=== PATIENT | male | born 1950 | race Caucasian/White ===

== ENCOUNTER 2022-11-12 18:44 | Emergency (ER) | payer BC, MEDICARE ==
[~2022-11-12] VITALS: Ht 175.3 cm; Wt 77.3 kg
[~2022-11-12 18:44] MED LIST: RISP1TAB48 PO; TRAZ-257 PO
[2022-11-12] MEDS ORDERED: ATOR-2 PO (18:52)
[2022-11-12] MEDS ORDERED: OLAN5TAB94 PO (18:52)
[2022-11-12] MEDS ORDERED: TICA90TA PO (18:52)
[2022-11-12] MEDS ORDERED: ASPI-1198 PO (18:52)
[2022-11-12 22:23] LABS: BASOPHILS % (AUTO) 0.4 % (0.0-2.0); EOSINOPHILS % (AUTO) 0 % (1.0-6.0); HEMATOCRIT 38.1 % (41-53); HEMOGLOBIN 12.5 g/dL (13.5-17.5); LYMPHOCYTES # (AUTO) 1.2 K/uL (1.0-4.8); LYMPHOCYTES % (AUTO) 13.8 % (22.0-44.0); MEAN CORPUSCULAR HEMOGLOBIN 31.5 pg (26.0-34.0); MEAN CORPUSCULAR HGB CONC 32.9 G/dL (31.0-37.0); MEAN CORPUSCULAR VOLUME 96 fL (80-100); MONOCYTES # (AUTO) 0.6 K/uL (0.1-1.0); NEUTROPHILS % (AUTO) 78.8 % (40.0-70.0); PLATELET COUNT (AUTO) 315 K/uL (150-450); RED BLOOD CELL COUNT(AUTO) 3.98 MIL/uL (4.50-5.90); RED CELL DISTRIBUTION WIDTH 15.8 % (11.5-14.5)
[2022-11-12 22:32] LABS: ANION GAP 16 mmol/L (8-16); CALCIUM, TOTAL 9.4 mg/dL (8.8-10.5); CARBON DIOXIDE 24 mmol/L (22-29); CHLORIDE 97 mmol/L (98-107); CREATININE 2.02 mg/dL (0.60-1.30); GLOMERULAR FILTR. RATE CALC 33 mL/min (>60); GLUCOSE,RANDOM 121 mg/dL (70-110); POTASSIUM 3.2 mmol/L (3.5-5.1); SODIUM SERUM 137 mmol/L (136-145)
[2022-11-12 22:39] LABS: ALANINE AMINOTRANSFERASE 20 U/L (12-78); ALBUMIN 4.2 g/dL (3.4-5.0); ALKALINE PHOSPHATASE 79 U/L (46-116); ASPARTATE AMINOTRANSFERASE 25 U/L (15-37); BILIRUBIN,TOTAL 0.8 mg/dL (0.1-1.0); TOTAL PROTEIN, SERUM 8.2 g/dL (6.4-8.2)
[2022-11-12] MEDS ORDERED: OLANZapine 5 MG TABLET PO ONE (22:45)
[2022-11-13] MEDS ORDERED: POTASSIUM CHLORIDE 20 MEQ ER TABLET PO ONE (00:30)
[2022-11-13] MEDS ORDERED: LORazepam 2 MG TABLET PO ONE (00:30)
[2022-11-13 02:10] VITALS: BP 139/74; PULSE 71; RESP 16; TEMP 97.3
== END 2022-11-13 02:33 | disposition home or self-care (01) ==
LOC: EMS 18:44
DX: F25.9 Schizoaffective disorder, unspecified (principal); R07.89 Other chest pain; E87.6 Hypokalemia; R11.10 Vomiting, unspecified; Z88.2 Allergy status to sulfonamides
CPT/HCPCS: 99284; 80053; 84484; 85025; 36415; 93005; G0480

== ENCOUNTER 2024-10-23 22:33 | Emergency (ER) | payer MEDICARE ==
[~2024-10-23] VITALS: Ht 175.3 cm; Wt 68.2 kg
[~2024-10-23 22:33] MED LIST changes: +ASPI-1198 PO; +ATOR-2 PO; +OLAN5TAB94 PO; -RISP1TAB48 PO; +TICA90TA PO; -TRAZ-257 PO
[2024-10-23 22:35] VITALS: BP 150/74; PULSE 98; RESP 18; TEMP 98.7; O2SAT 98
[2024-10-23 23:28] LABS: RED BLOOD CELL COUNT(AUTO) 4.17 MIL/uL (4.50-5.90); RED CELL DISTRIBUTION WIDTH 15.4 % (11.5-14.5); WHITE BLOOD COUNT (AUTO) 7.0 K/uL (4.5-11.0)
[2024-10-23 23:35] LABS: CALCIUM, TOTAL 9.4 mg/dL (8.8-10.5); CREATININE 0.84 mg/dL (0.60-1.30); GLOMERULAR FILTR. RATE CALC > 60 mL/min (>60); GLUCOSE,RANDOM 96 mg/dL (70-110); SODIUM SERUM 138 mmol/L (136-145); UREA NITROGEN, BLOOD 22 mg/dL (7-18)
[2024-10-23 23:38] LABS: ASPARTATE AMINOTRANSFERASE 26.0 U/L (15-37); TOTAL PROTEIN, SERUM 7.9 g/dL (6.4-8.2)
[2024-10-23 23:41] LABS: TROPONIN I-HIGH SENSITIVITY 9 ng/L (<76)
[2024-10-24 00:01] LABS: PLATELET COUNT (AUTO) 319 K/uL (150-450)
== END 2024-10-24 02:11 | disposition home or self-care (01) ==
LOC: EMS 23:39
DX: F20.9 Schizophrenia, unspecified (principal); R07.89 Other chest pain; Z88.2 Allergy status to sulfonamides; Z79.82 Long term (current) use of aspirin; Z79.899 Other long term (current) drug therapy
CPT/HCPCS: 71045; 80048; 80076; 84484; 85025; 93005; 99285; 36415-L1; 36415-TC